=== PATIENT | female | born 1990 | race Two or more races ===

== ENCOUNTER 2017-12-31 17:15 | Emergency (ER) | payer MEDICAID ==
[~2017-12-31] VITALS: Ht 162.6 cm; Wt 72.6 kg
[2017-12-31 17:52] VITALS: BP 124/76
[2017-12-31] MEDS ORDERED: Acetaminophen 500mg (ES) tab ORAL ONE (18:00)
--- NOTE | 2017-12-31 18:24 | Emergency Room Report ---
History of Present Illness General Chief Complaint: General Complaint Source: Patient Present Illness HPI 27-year-old female patient presents ER complaining of left lower extremity pain for the past day. Denies history of injury or trauma. Reports history of similar symptoms in her right lower extremity, states symptoms have been present for over 20 years. Denies history of DVT or PE. Denies history of CHF or NM. Reports history of hypertension, currently being treated with propranolol. reports not currently taking any blood thinner medication. Denies recent surgery. Denies fever, chest pain, shortness of breath, abdominal pain. REports [place] to the from [place] weeks ago. Allergies: Coded Allergies: No Known Allergies (Unverified , 12/31/17) Patient History Past Medical History: see triage record Last Menstrual Period: 12/05/2017 Reviewed Nursing Documentation: PMH: Agreed; PSxH: Agreed Nursing Documentation-PMH Past Medical History: No History, Except For Hx Hypertension: Yes Review of Systems All Other Systems: negative except mentioned in HPI Physical Exam Vital Signs Date Time Temp Pulse Resp B/P (MAP) Pulse Ox O2 Delivery O2 Flow Rate FiO2 12/31/17 17:30 98.4 67 14 124/76 100 Room Air 98.4 Sp02 EP Interpretation: reviewed, normal General Appearance: well appearing, no apparent distress, alert, GCS 15, non- toxic Head: normocephalic, atraumatic Eyes: bilateral eye normal inspection, bilateral eye PERRL ENT: hearing grossly normal, normal pharynx, no angioedema, normal voice, uvula midline, moist mucus membranes Neck: full range of motion Respiratory: lungs clear, normal breath sounds, no rhonchi, no respiratory distress, no accessory muscle use, no wheezing, speaking full sentences Cardiovascular #2: 2+ dorsalis pedis (R), 2+ dorsalis pedis (L) Musculoskeletal: back normal, digits/nails normal, gait/station normal, normal range of motion, no calf tenderness, Heath's Sign negative, swelling - left lower extremity and calf, no varicose veins, other - sensation intact to light touch,NVI, no erythema, no warmth to touch, tender - left ankle posterior lateral malleolus Neurologic: alert, oriented x3, responsive, motor strength/tone normal, sensory intact Psychiatric: mood/affect normal Skin: no rash Medical Decision Making PA Attestation Dr. Pabon is my supervising Physician whom patient management has been discussed with. Diagnostic Impression: Primary Impression: Leg swelling ER Course Pt. presents to the ED c/o leg pain and edema. Ddx considered but are not limited to fracture peripheral edema, CHF, NM, DVT, venous insufficiency. no tachycardia, no hemoptysis, no leg swelling, negative Homans sign, low suspicion for DVT due to Wells criteria. ordered EKG and CHF to rule out NM or CHF. due to history of recent travel, leg swelling symptoms, ordered ultrasound to rule out DVT. Vital signs: are WNL, pt. is afebrile. ER COURSE: provided with pain medication in the ER. CXR negative for acute disease EKG no ST elevations, no atrial fibrillation, no tachycardia. Low suspicion for acute CHF exacerbation, no chest pain or SOB noted by patient , lungs clear to auscultation. she does not require cardiac workup at this time. Low suspicion for NM or CHF Venous duplex ultrasound negative for DVT in bilateral lower extremities. X-ray of left ankle negative for acute disease. Leg swelling symptoms likely causing pain symptoms, may be due to peripheral vascular insufficiency, followup with PCP and discuss referral to cardiology and vascular specialist, discuss further treatment and referral at that time. ANDREW wrapped foot ankle and calf in the ER provided with crutches. Checked afterwards by me showing good alignment and neurovascularly intact. Patient states feels better, pain symptoms improved while in the ER. Provided with contact information for free and low-cost healthcare clinics, instructed patient to contact insurance to establish care with primary care provider since she just moved to the area. Discuss results with the patient. Provided patient with copy of results. Instructed patient to followup with PCP and discuss results of report with patient, discuss need for further treatment and referral. advised patient to to elevate legs and wear compression stockings. Take blood pressure medication as instructed. Do not skip dosages of medications. states has medication, does not require medication Patient Nontoxic appearing, in no acute distress, OK for discharge to home. patient slightly febrile prior to discharge, lungs clear to auscultation, no dysuria or hematuria, advised patient to take Tylenol for fever symptoms. Patient afebrile for remainder of ER stay, denies fever at home. Return to ER for new or worsening symptoms. Patient nontoxic appearing, in no acute distress , does not require further workup or evaluation at this time. DISCHARGE: .Rx provided for Tylenol At this time pt is stable for d/c to home. Patient is resting comfortably, in no acute distress, nontoxic appearing, talking without difficulty. Patient to take medications as instructed Will provide with patient care instructions and any necessary prescriptions. Care plan and follow-up instructions provided. Patient instructed to follow-up with primary care provider in 3 - 5 days. Patient questions asked and answered. Patient reports understanding and agreement to treatment plan. ER precautions given. Patient instructed to return to ER immediately for any new or worsening of symptoms including but not limited to increasing SOB, persistent fever, chest pain, intractable vomiting. - Please note that this Emergency Department Report was dictated using [employer] technology software, occasionally this can lead to erroneous entry secondary to interpretation by the dictation equipment. EKG Diagnostic Results Rate: normal Rhythm: NSR ST Segments: no acute changes ASA given to the pt in ED: No PA Scribe Text Weston Nick PA-C Rhythm Strip Diag. Results EP Interpretation: yes Rate: 68 Rhythm: NSR, no PVC's, no ectopy PA Scribe Text Weston Nick PA-C Chest X-Ray Diagnostic Results Chest X-Ray Diagnostic Results : Chest X-Ray Ordered: Yes # of Views/Limited/Complete: 1 View Indication: Other EP Interpretation: Yes PA Xray: Interpretation reviewed, by supervising MD, and agrees with findings. Interpretation: no consolidation, no effusion, no pneumothorax, no acute cardiopulmonary disease Impression: No acute disease PA Scribe Text Weston Nick PA-C Other X-Ray Diagnostic Results Other X-Ray Diagnostic Results : X-Ray ordered: left ankle # of Views/Limited Vs Complete: 3 View Indication: Pain EP Interpretation: Yes PA Xray: Interpretation reviewed, by supervising MD, and agrees with findings. Interpretation: no dislocation, no soft tissue swelling, no fractures Impression: No acute disease PA Scribe Text Weston Nick PA-C CT/MRI/US Diagnostic Results CT/MRI/US Diagnostic Results : Imaging Test Ordered: venous duplex ultrasound of bilateral lower extremities Impression negative for DVT per the quality control lab technician Last Vital Signs Date Time Temp Pulse Resp B/P (MAP) Pulse Ox O2 Delivery O2 Flow Rate FiO2 12/31/17 18:08 98.4 12/31/17 17:52 67 14 124/76 100 Room Air Disposition: HOME, SELF-CARE Condition: Stable Scripts Acetaminophen* (TYLENOL EXTRA STRENGTH*) 500 Mg Tablet 500 MG ORAL Q8H PRN for Prn Headache/Temp > 101, #30 TAB 0 Refills Prov: Edgar Nick 12/31/17 Referrals: NOT CHOSEN [facility]/,REFERRING (PCP) Patient Instructions: Edema, [id number], Peripheral Edema Additional Instructions: Patient instructed to follow up with primary care provider and discuss further referral at that time. Discuss high blood pressure medication. Follow-up with cardiology, discussed high blood pressure medication with primary care provider. Patient instructed on RICE method: rest, ice, compression, elevation. Patient instructed to WBAT. Patient advised on use of compression stockings. Take medications as directed. Patient questions asked and answered. ER precautions given, patient instructed to return to ER immediately for any new or worsening of symptoms. Edgar Nick Dec 31, 2017 18:24
[2017-12-31] MEDS ORDERED: TYLENOL EXTRA500 MG ORAL (20:35)
[2017-12-31 21:16] VITALS: BP 110/74
--- NOTE | 2018-01-04 14:53 | Cardiology Report ---
APPROVED REPORT EKG Measurement Heart [id number] Normal sinus rhythm Normal ECG
== END 2017-12-31 21:20 | disposition home or self-care (01) ==
LOC: EMR 17:45
DX: M79.662 Pain in left lower leg (principal); M79.661 Pain in right lower leg; R60.9 Edema, unspecified; I10 Essential (primary) hypertension; Z79.899 Other long term (current) drug therapy
CPT/HCPCS: 71045; 93005; 93970; 99284

== ENCOUNTER 2018-08-23 00:09 | Emergency (ER) | payer MEDICAID ==
[~2018-08-23] VITALS: Ht 165.1 cm; Wt 74.8 kg
[~2018-08-23 00:09] MED LIST: TYLENOL EXTRA500 MG ORAL
[2018-08-23] MEDS ORDERED: PROPRANOLOL HCL40 MG ORAL (00:21)
[2018-08-23] MEDS ORDERED: BUTALB-ACETAMI1 EAC3 PO (00:21)
--- NOTE | 2018-08-23 00:43 | NUR ---
ED Nurse Note: pt walked in c/o headache x 4hrs and left leg pain, pt denies any recent injuries, pt denies any discomfort with urination, denies n/v/d, pt reports having pressure like pain headache. noted pt limping as well but ambulates w/ steady gait. pt vss, resp even and unlabored on RA, no active n/v/d at this time, will cont monitor.
[2018-08-23 00:44] VITALS: BP 141/87
[2018-08-23] MEDS ORDERED: Acetaminophen 500mg (ES) tab ORAL ONE (00:45)
[2018-08-23 00:46] LABS: APPEARANCE,URINE SLIGHTLY CLOUDY; BILIRUBIN, URINE NEGATIVE (NEGATIVE); COLOR,URINE PALE YELLOW; GLUCOSE, URINE (UA) NEGATIVE (NEGATIVE); KETONES,URINE NEGATIVE (NEGATIVE); LEUKOCYTE ESTERASE ,URINE 1+ (NEGATIVE); NITRITE,URINE NEGATIVE (NEGATIVE); PH,URINE 5 (4.5-8.0); PROTEIN,URINE 4+ (NEGATIVE); UROBILINOGEN,URINE NORMAL MG/DL (0.0-1.0)
[2018-08-23] MEDS ORDERED: REGLAN10 MG ORAL (01:20)
[2018-08-23 01:30] VITALS: BP 138/82
--- NOTE | 2018-08-23 01:30 | NUR ---
ER DISCHARGE NOTE: Patient is cleared to be discharged per Fernando. Pt is A/O x 4 on room air with stable vital signs. Pt was given dc and prescription instructions and was able to verbalize understanding. Pt's ID band removed. Pt is able to ambulate with steady gait and pt took all belongings.
--- NOTE | 2018-08-23 02:36 | Emergency Room Report ---
History of Present Illness General Chief Complaint: Headache Source: Patient Present Illness HPI 27-year-old female presents ED for evaluation. Complaining of headache 1 day. Throbbing, 10 out of 10, nonradiating. History of migraines and history of hypertension. States she took her medications without significant relief. Denies photophobia or blurry vision. Denies nausea or vomiting. Denies neck stiffness. States she also felt some palpitations. Denies chest pain or shortness of breath. No other aggravating relieving factors. Denies any other associated symptoms Allergies: Coded Allergies: No Known Allergies (Unverified , 12/31/17) Patient History Past Medical History: HTN, migraines Past Surgical History: none Pertinent Family History: none Social History: Denies: smoking, alcohol use, drug use Last Menstrual Period: 07/25/18 Now: No Immunizations: UTD Reviewed Nursing Documentation: PMH: Agreed; PSxH: Agreed Nursing Documentation-PMH Past Medical History: No History, Except For Hx Hypertension: Yes Review of Systems All Other Systems: negative except mentioned in HPI Physical Exam Vital Signs Date Time Temp Pulse Resp B/P (MAP) Pulse Ox O2 Delivery O2 Flow Rate FiO2 08/23/18 00:17 98.4 78 141/87 08/23/18 00:44 16 100 Room Air Sp02 EP Interpretation: reviewed, normal General Appearance: no apparent distress, alert, GCS 15, non-toxic Head: normocephalic, atraumatic Eyes: bilateral eye normal inspection, bilateral eye PERRL, bilateral eye EOMI ENT: hearing grossly normal, normal pharynx, no angioedema, normal voice Neck: full range of motion, supple, no meningismus, no bony tend, supple/symm/ no masses Respiratory: chest non-tender, lungs clear, normal breath sounds, speaking full sentences Cardiovascular #1: regular rate, rhythm, no edema Cardiovascular #2: 2+ carotid (R), 2+ carotid (L), 2+ radial (R), 2+ radial (L) , 2+ dorsalis pedis (R), 2+ dorsalis pedis (L) Gastrointestinal: normal bowel sounds, non tender, soft, non-distended, no guarding, no rebound Rectal: deferred Genitourinary: normal inspection, no CVA tenderness Musculoskeletal: back normal, gait/station normal, normal range of motion, non- tender Neurologic: alert, oriented x3, responsive, motor strength/tone normal, sensory intact, speech normal Psychiatric: judgement/insight normal, memory normal, mood/affect normal, no suicidal/homicidal ideation Reflexes: 3+ bicep (R), 3+ bicep (L), 3+ tricep (R), 3+ tricep (L), 3+ knee (R) , 3+ knee (L) Skin: normal color, no rash, warm/dry, well hydrated Lymphatic: no adenopathy Medical Decision Making Diagnostic Impression: Primary Impression: Headache Qualified Codes: R51 - Headache ER Course Hospital Course 27 yo F presents with headache. h/o migraines Differential diagnoses include: tension headache, migraine, dehydration, intracranial bleed Clinical course Patient placed on stretcher. After initial history and physical I ordered UA, tylenol and reglan, EKG EKG - NSR, no acute ischemic changes interpreted by me UA unermarkable Upon reassessment patient states headache has improved. Patient feels better wishes to go home. Given the lack of fever, nuchal rigidity or neurological findings my suspicion for intracranial pathology is low patient be safely discharged to home. Safe for discharge or close outpatient follow-up. Does not have a PMD. We'll provide referrals i. I feel this is a highly complex case requiring extensive working including EKG/Rhythm strip, Xray/CT/US, Blood/urine lab work, repeat exams while in ED, and administration of strong opiates/narcotics for pain control, admission to hospital or close patient follow up. Diagnosis - headache stable and discharged to home with Rx Reglan. f/up with PMD. return to ED if symptoms recur/worsen. Labs Test 08/23/18 00:32 Urine Color Pale yellow Urine Appearance Slightly cloudy Urine pH 5 (4.5-8.0) Urine Specific [place] 1.020 (1.005-1.035) Urine Protein 4+ (NEGATIVE) Urine Glucose (UA) Negative (NEGATIVE) Urine Ketones Negative (NEGATIVE) Urine Blood 1+ (NEGATIVE) Urine Nitrite Negative (NEGATIVE) Urine Bilirubin Negative (NEGATIVE) Urine Urobilinogen Normal MG/DL (0.0-1.0) Urine Leukocyte Esterase 1+ (NEGATIVE) Urine RBC 0-2 /HPF (0 - 2) Urine WBC 2-4 /HPF (0 - 2) Urine Squamous Epithelial Cells Moderate /LPF (NONE/OCC) Urine Bacteria Few /HPF (NONE) Urine HCG, Qualitative Negative (NEGATIVE) EKG Diagnostic Results Rate: normal Rhythm: NSR ST Segments: no acute changes ASA given to the pt in ED: No Rhythm Strip Diag. Results EP Interpretation: yes Rhythm: NSR, no PVC's, no ectopy Last Vital Signs Date Time Temp Pulse Resp B/P (MAP) Pulse Ox O2 Delivery O2 Flow Rate FiO2 08/23/18 01:30 98.2 78 16 138/82 100 Room Air Status: improved Disposition: HOME, SELF-CARE Condition: Stable Scripts Metoclopramide Hcl* (REGLAN*) 10 Mg Tablet 10 MG ORAL THREE TIMES A DAY for 5 Days, TAB Prov: Nico King MD 08/23/18 Referrals: [facility],REFERRING (PCP) [facility] Patient Instructions: Migraine Headache Nico King MD Aug 23, 2018 02:36
--- NOTE | 2018-08-23 15:55 | Cardiology Report ---
APPROVED REPORT EKG Measurement Heart [id number] Normal sinus rhythm Normal ECG
== END 2018-08-23 01:30 | disposition home or self-care (01) ==
LOC: EMR 00:30
DX: R51 Headache (principal); I10 Essential (primary) hypertension
CPT/HCPCS: 81003; 81025; 93005; 99283